=== PATIENT | male | born 1985 | race Caucasian/White ===

== ENCOUNTER 2024-02-25 08:19 | Outpatient (CLI) | payer BC, SELFPAY ==
--- NOTE | ~2024-02-25 | US_ITS ---
EXAMINATION: US soft tissue head and neck DATE: 02/25/2024 08:40 INDICATION: Localized swelling, mass and lump, head. TECHNIQUE: Multiple grayscale and Doppler ultrasound images of the head and neck were obtained. COMPARISON: Head CT 10/11/2013 FINDINGS: In the superior scalp, there is a 9 x 5 x 9 mm mass of mixed echogenicity. IMPRESSION: 1. 9 mm mass in the superior scalp, probably benign. The differential diagnosis includes hematoma, pe ripheral nerve sheath tumor, and sebaceous cyst. Reviewed, dictated and finalized at location A. [employer] INTERVIEWER IMPRESSION: 1. 9 mm mass in the superior scalp, probably benign. The differential diagnosis includes hematoma, peripheral nerve sheath tumor, and sebaceous cyst.
== END 2024-02-25 08:20 | disposition home or self-care (01) ==
LOC: MICIMG 08:20
PROVIDERS: Visit Provider Nurse Practitioner Adult Health
DX: R22.0 Localized swelling, mass and lump, head (principal)
CPT/HCPCS: 76536